=== PATIENT | male | born 1975 | race Caucasian/White ===

== ENCOUNTER 2024-04-29 16:05 | Emergency (ER) | payer BC, SELFPAY ==
[2024-04-29 16:19] VITALS: BP 165/106
[2024-04-29 16:35] LABS: % Basophils 0.3 % (0-2); % Immature Granulocytes 0.1 % (0-0.5); % Lymphocytes 35.8 % (20.5-51.1); % Monocytes 12.1 % (1.7-9.3); % Neutrophils 50.7 % (42.2-75.2); Absolute Eosinophils 0.1 10^3/uL (0-0.7); Absolute Lymphocytes 2.6 10^3/uL (1.2-3.4); Absolute Monocytes 0.9 10^3/uL (0.1-0.6); Absolute Neutrophils 3.6 10^3/uL (1.4-6.5); Hematocrit 38.4 % (39.0-52.0); Mean Corp Hgb Conc. 36.5 g/dL (33.0-37.0); Mean Corpuscular Hgb 32.6 pg (27.0-31.0); Mean Corpuscular Volume 89.3 fL (80.0-94.0); Mean Platelet Volume 8.4 fL (7.4-10.4); Nucleated Red Blood Cells % 0 % (-); Platelet Count 258 10^3/uL (130-400); Red Cell Dist. Width 11.9 % (11.5-14.5); White Blood Cell Count 7.1 10^3/uL (4.8-10.8)
[2024-04-29 16:56] LABS: ALT (SGPT) 18 U/L (0-50); AST (SGOT) 23 U/L (17-59); Albumin 4.6 g/dl (3.5-5.0); Alkaline Phosphatase 63 U/L (38-126); Blood Urea Nitrogen 10 mg/dl (9-20); Calcium 9.7 mg/dl (8.4-10.2); Carbon Dioxide 22 mmol/L (22-30); Chloride 105 mmol/L (98-107); Glucose 96 mg/dl (70-99); Lipase 70 U/L (23-300); Potassium 3.8 mmol/L (3.5-5.1); Sodium 136 mmol/L (135-145); Total Bilirubin 1.4 mg/dl (0.2-1.3); eGFR > 60.00
--- NOTE | 2024-04-29 19:03 | ED.GENMED ---
History of Present Illness
General
Chief Complaint: Abdominal Pain
Time Seen by Provider: 04/29/24 18:57
History of Present Illness
History of Present Illness:
48-year-old male presents to the emergency department for evaluation of right lower quadrant abdominal pain. He has had pain ongoing for the past 2 weeks or longer but over the past day the pain increased and he feels generally fatigued with poor
appetite. No history of abdominal surgeries. Denies any fever, chills, sweats, nausea, vomiting, or diarrhea. No lower urinary tract voiding symptoms
Review of Systems
Review of Systems
Allergies reviewed?: Yes
All Other Systems: ROS reviewed and negative except as documented in HPI and ROS
Phy Exam
Physical Exam
Physical Exam:
GEN: Well appearing, NAD, WDWN
HEENT: Oral mucosa moist, no scleral icterus
Cardiac: Regular rate
Lung: No respiratory distress, no tachypnea
Abdomen: Soft, grossly nontender, no palpable masses or hernia
MSK: No gross deformity or injuries
Skin: Good color, no pallor or jaundice, no rashes
Neuro: AO x3, moves all extremities freely
Psych: Calm, cooperative
Course
Orders/Labs/Results
Orders:
Orders
04/29/24 16:24
Complete Blood Count/With Diff Urgent
Comprehensive Metabolic Panel Urgent
Lipase Urgent
04/29/24 19:03
CT Abd/Pel (IV only)-DH only Urgent
Comment:
Reason For Exam: RLQ pain
Abnormal Lab Results
04/29/24
16:24
RBC 4.30 L 10^6/uL
(4.70-6.10)
Hct 38.4 L %
(39.0-52.0)
MCH 32.6 H pg
(27.0-31.0)
Absolute Monos (auto) 0.9 H 10^3/uL
(0.1-0.6)
Monocytes % 12.1 H %
(1.7-9.3)
Total Bilirubin 1.4 H mg/dl
(0.2-1.3)
04/29/24 16:24
04/29/24 16:24
Vital Signs
Initial and Last Documented VS:
Initial Vital Signs
Temp Pulse Resp BP Pulse Ox
99.2 F 93 18 165/106 98
04/29/24 16:19 04/29/24 16:19 04/29/24 16:19 04/29/24 16:19 04/29/24 16:19
Last Documented Vital Signs
Temp Pulse Resp BP Pulse Ox
99.2 F 78 16 152/99 96
04/29/24 16:19 04/29/24 21:27 04/29/24 21:27 04/29/24 21:27 04/29/24 21:27
MDM/Problems Addressed
MDM/Problems Addressed:
CT shows no acute pathology, unclear etiology to pain. Recommend follow-up with PCP if symptoms persist. Could be musculoskeletal etiology
*Critical Care Note
Total Time (30-74mins, 75-104mins- exclusive of procedures): Not Applicable
ED Attending Note
-
Portions of this chart may have been created with voice recognition software.� Occasional wrong word or��sound alike� substitutions may have occurred due to the inherent limitations of voice recognition software.
Discharge Plan
Departure
Patient Disposition: Home (Routine Discharge)
Date of Disposition: 04/29/24
Time of Disposition: 21:58
Patient with high blood pressure during this ER visit?: No
Discharge Problem:
Abdominal pain, lower
Instructions: Abdominal Pain
Referrals:
Shivam Woods DO [Family Provider] -
Interventions
Interventions:
*Risk Screen - Suicide Last Done: 04/29/24 18:48
*General Assessment Last Done: 04/29/24 19:40
*Neglect/Abuse Screening Last Done: 04/29/24 18:48
*Nursing Disposition Last Done: 04/29/24 22:09
BN-Ptvyoh-Abgerkujbh Assessment Last Done: 04/29/24 19:40
Discharge Date and Time
Discharge Date/Time: 04/29/24 22:09
Print Language: PORTUGUESE
[2024-04-29 19:40] VITALS: BP 145/92; BMI 29.4
[2024-04-29 21:27] VITALS: BP 152/99
== END 2024-04-29 22:09 | disposition home or self-care (01) ==
LOC: EMR 16:05
PROVIDERS: EMERGENCY PHYSICIAN Emergency Medicine; FAMILY PHYSICIAN Family Medicine
DX: R10.31 Right lower quadrant pain (principal); R53.83 Other fatigue; R63.0 Anorexia
CPT/HCPCS: 99284; 74177; 80053; 83690; 85025; Q9967